=== PATIENT | female | born 1970 | race Caucasian/White ===

== ENCOUNTER → 2017-08-10 | Outpatient (CLI) | payer OTHER ==
--- NOTE | 2017-08-11 14:35 | MAMMOGRAPHY REPORT ---
BILATERAL DIGITAL SCREENING MAMMOGRAM TOMOSYNTHESIS WITH CAD: 08/10/2017 CLINICAL HISTORY: Routine screening. Patient has no complaints. Baseline examination. TECHNIQUE: Bilateral breast tomosynthesis in addition to standard 2D mammography was performed. Curr ent study was also evaluated with a Computer Aided Detection (CAD) system. COMPARISON: No prior exams were available for comparison. BREAST COMPOSITION: There are scattered areas of fibroglandular density in both breasts. FINDINGS: There is a 6 mm nodular asymmetry in the middle one third of the right breast, 7.8 cm dist al to the nipple on CC tomosynthesis slice 38, and another nodular asymmetry versus partially circums cribed mass measuring 4.4 mm along the posterior nipple line (CC tomosynthesis slice 48/73) although these could represent cysts, additional spot compression tomosynthesis views and possible ultrasound are recommended. There is global asymmetry of the glandular tissue of the right breast that is increased comparing to the left, which could simply represent normal anatomic variation. No other suspicious mass, architec tural distortion or cluster of microcalcifications is seen. IMPRESSION: ACR BI-RADS CATEGORY 0: INCOMPLETE EVALUATION: NEED ADDITIONAL IMAGING EVALUATION The two subcentimeter nodular asymmetries in the middle one third of the right breast along the poste rior nipple line on the CC view, thought to project superiorly based on the MLO view need additional imaging evaluation. The patient will be called to schedule an appointment. Approximately 10% of breast cancers are not detected with mammography. A negative mammographic report should not delay biopsy if a clinically suggestive mass is present. Georgie Hansen M.D. ay/:08/10/2017 15:57:37 [employer] Consultant: Nadira Sandoval M, [facility] letter sent: Addl Imaging 0 BI-RADS Code: ACR BI-RADS Category 0: Incomplete Evaluation: Need Additional Imaging Evaluation
== END | disposition home or self-care (01) ==
LOC: C.MAMM 13:32
PROVIDERS: ATTEND Physician Assistant
DX: Z12.31 Encounter for screening mammogram for malignant neoplasm of breast (principal)

== ENCOUNTER → 2017-08-24 | Outpatient (CLI) | payer OTHER ==
--- NOTE | 2017-08-25 12:47 | MAMMOGRAPHY REPORT ---
UNILATERAL RIGHT DIGITAL DIAGNOSTIC MAMMOGRAM TOMOSYNTHESIS AND TARGETED RIGHT ULTRASOUND: 08/24/2017 CLINICAL HISTORY: 41 [id number] woman called back from baseline screening mammogram for 2 adjacent nodular asymmetries in the 12:00 versus central right breast. No family history of breast cancer. TECHNIQUE: Spot compression right CC and MLO tomosynthesis images were obtained. COMPARISON: Comparison is made to exam dated: 08/10/2017 mammogram - [facility]. BREAST COMPOSITION: There are scattered areas of fibroglandular density in the right breast. FINDINGS: The spot compression tomosynthesis views of the right breast demonstrate 2 persistent oval circumscribed 4.7 mm masses in the middle one third of the right breast, slightly lateral to the post erior nipple line on the CC view, not well seen on the spot compression MLO tomosynthesis images. Th ere is no focal area of architectural distortion, dominant suspicious mass or suspicious clustered mi crocalcifications. Targeted ultrasound was performed in the 11:00 through 1:00 and retroareolar right breast. There are a few anechoic benign simple cysts most notably in the 12:00 right breast, 2 cm from the nipple, yuliana suring 4.6 x 2.7 x 7.2 mm and in the 12:00 right breast, 1 cm from the nipple, measuring 6.0 x 4.5 mm . These likely correlate with the circumscribed mammographic masses. Another anechoic benign simple cyst is seen in the 11:00 right breast, 5 cm from the nipple, measuring 5.3 x 3.7 x 5.4 mm. There a re indeterminate isoechoic to hypoechoic circumscribed benign-appearing masses in the 1:[address], 3 cm from the nipple, measuring 4.3 x 2.5 x 4.7 mm, and 4.1 x 3.2 x 5.0 mm. Another hypoechoic s olid versus cystic mass is identified in the 12:00 right breast, 2 cm from the nipple, measuring 3.4 x 3.4 x 2.7 mm and there is a probable cluster of microcysts in the 11:30 right breast, 3 cm from the nipple, measuring 6.8 x 6.4 x 4.0 mm. IMPRESSION: ACR-BI-RADS CATEGORY 3: PROBABLY BENIGN, TARGETED ULTRASOUND ACR-BI-RADS CATEGORY 3: PRO BABLY BENIGN 1. There are 2 persistent circumscribed subcentimeter masses in the central versus 12:00 middle one third of the right breast mammographically, with probable cystic correlate on ultrasound. However, n umerous (more than two) masses are identified on ultrasound, some of which represent benign simple cy sts and other could represent complicated cysts, cyst clusters or benign solid masses such as fibroad enomas. A short interval follow-up right diagnostic tomosynthesis mammogram and repeat targeted ultr asound in the 11:00, 12:00 and 1:00 axes is recommended to ensure stability of the masses that do not meet the criteria for simple cysts in 6 months. These results and recommendations were discussed with the patient at the time of the exam. She tenta tively scheduled a follow-up appointment prior to leaving our department. Approximately 10% of breast cancers are not detected with mammography. A negative mammographic report should not delay biopsy if a clinically suggestive mass is present. Georgie Hansen M.D. 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 letter sent: Follow Up Recommended 3 BI-RADS Code: ACR-BI-RADS Category 3: Probably Benign Ultrasound BI-RADS: ACR-BI-RADS Category 3: Pr obably Benign
== END | disposition home or self-care (01) ==
LOC: C.MAMM 13:26
PROVIDERS: ATTEND Physician Assistant
DX: N64.59 Other signs and symptoms in breast (principal)